=== PATIENT | female | born 2000 | race Caucasian/White ===

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

== ENCOUNTER 2022-02-27 12:09 | Outpatient (CLI) | payer BC ==
[2022-02-27 12:50] VITALS: BP 103/57; PULSE 85; RESP 16; TEMP 97
--- NOTE | 2022-05-10 13:44 | P.MSEPDOC ---
Presenting Problems - Arrival Data Date of Arrival on Unit: 02/27/22 Time of Arrival on Unit: 12:09 Mode of Transport: Ambulatory - Complaint OB-Reason for Admission/Chief Complaint: Rule Out PROM Medical History - Information : 1 Para: 0 Term: 0 : 0 Abortions: Spontaneous or Elective: 0 Number of Living Children: 0 - Gestational Age Gestational Age by MOE (wks/days): 26 Weeks and 6 Days Review of Systems - Review of Systems Constitutional: No problems Breast: No problems ENT: No problems Cardiovascular: No problems Respiratory: No problems Gastrointestinal: No problems Genitourinary: No problems Musculoskeletal: No problems Neurological: No problems Skin: No problems Vital Signs - Temperature Temperature: 97.0 F Temperature Source: Temporal Artery Scan - Pulse Right Sitting Pulse Rate: 85 Pulse Assessment Method: Automatic Cuff - Respirations Respiratory Rate: 16 Oxygen Delivery Method: Room Air O2 Sat by Pulse Oximetry: 98 - Blood Pressure Right Arm Blood Pressure: 103/57 Blood Pressure Mean: 72 Blood Pressure Source: Automatic Cuff Medical Screen Scoring - Assessment - Baby A Baseline FHR: 125 Heart Rate - NICHD Category: Category I (Normal) Physician Notification - Physician Notified Physician Notified Date: 02/27/22 Physician Notified Time: 12:37 Physician: Lauren Epstein New Order Received: Yes (d/c home) Maternal Triage Index - Urgent/Priority 2 Urgent Priority 2: Yes Provider Notified: Lauren Epstein Provider Notified Time: 12:37 Criteria Met for Priority 2: negative amnisure, no leaking fluid noted Disposition - Disposition OB Disposition: Discharge to home Discharge Date: 02/27/22 Discharge Time: 12:42 I agree with the RN Medical Screening Exam: Yes Case reviewed; plan agreed upon as documented in EMR&OBIX.: Yes Diagnosis: FALSE LABOR BEFORE 37 COMPLETED WEEKS OF GEST, THIRD TRI
== END 2022-02-27 12:42 | disposition home or self-care (01) ==
LOC: FBPOP 12:09
PROVIDERS: ATTEND Obstetrics & Gynecology Obstetrics
DX: O47.02 False labor before 37 completed weeks of gestation, second trimester (principal); Z3A.26 26 weeks gestation of pregnancy
CPT/HCPCS: 84112; 99213

== ENCOUNTER 2022-05-09 14:23 | Outpatient (CLI) | payer BC, OTHER ==
[2022-05-09 15:24] VITALS: BP 109/57; PULSE 87; RESP 16; TEMP 97.5
--- NOTE | 2022-05-10 14:40 | P.MSEPDOC ---
Presenting Problems - Arrival Data Date of Arrival on Unit: 05/09/22 Time of Arrival on Unit: 14:31 Mode of Transport: Ambulatory - Complaint OB-Reason for Admission/Chief Complaint: Possible Onset of Labor Comment: Contractions since yesterday- lower back and hip pain. Medical History - Information : 1 Para: 0 Term: 0 : 0 Abortions: Spontaneous or Elective: 0 Number of Living Children: 0 - Gestational Age Gestational Age by MOE (wks/days): 37 Weeks and 0 Days Review of Systems - Review of Systems Constitutional: No problems Breast: No problems ENT: No problems Cardiovascular: No problems Respiratory: No problems Gastrointestinal: No problems Genitourinary: No problems Musculoskeletal: No problems Neurological: No problems Skin: No problems Vital Signs - Temperature Temperature: 97.5 F Temperature Source: Oral - Pulse Pulse Oximetery Pulse Rate: 87 Pulse Assessment Method: Automatic Cuff - Respirations Respiratory Rate: 16 Oxygen Delivery Method: Room Air O2 Sat by Pulse Oximetry: 100 - Blood Pressure Left Arm Sitting Blood Pressure: 109/57 Blood Pressure Mean: 74 Blood Pressure Source: Automatic Cuff Medical Screen Scoring - Cervical Exam Dilation (cm): 1 Effacement (%): 50 Station: -2 Membranes: Intact - Uterine Contractions Frequency From (mins): 20 Frequency To (mins): 20 Duration From (seconds): 60 Duration To (seconds): 80 Intensity: Moderate Resting: Soft to palpation - Assessment - Baby A Baseline FHR: 120 Heart Rate - NICHD Category: Category I (Normal) NST: Reactive Physician Notification - Physician Notified Physician Notified Date: 05/09/22 Physician Notified Time: 15:10 Physician: Lauren Epstein New Order Received: Yes Maternal Triage Index - Maternal Triage Index Presenting for scheduled procedure w/no complaint: No - Stat/Priority 1 Stat Priority 1: No - Urgent/Priority 2 Urgent Priority 2: No - Prompt/Priority 3 Prompt Priority 3: No - Non-Urgent/Priority 4 Non-Urgent Priority 4: Yes Criteria Met for Priority 4: 37 weeks, contractions Q 20 minutes, denies ROM, denies vag bleeding. Contraction causing back pain and hip pressure. Disposition - Disposition OB Disposition: Discharge to home, Written follow up instructions reviewed Discharge Date: 05/09/22 Discharge Time: 15:15 I agree with the RN Medical Screening Exam: Yes Case reviewed; plan agreed upon as documented in EMR&OBIX.: Yes Diagnosis: FALSE LABOR AT OR AFTER 37 COMPLETED WEEKS OF GESTATION
== END 2022-05-09 15:15 | disposition home or self-care (01) ==
LOC: FBPOP 14:23
PROVIDERS: ATTEND Obstetrics & Gynecology Obstetrics
DX: O47.1 False labor at or after 37 completed weeks of gestation (principal); Z3A.37 37 weeks gestation of pregnancy
CPT/HCPCS: 59025; 99213

== ENCOUNTER 2022-05-23 05:58 | Inpatient (IN) | payer BC, OTHER ==
[2022-05-23] MEDS: LACTATED RINGERS 1,000 ML IV SCH ×3 (06:10→12:53)
[2022-05-23] MEDS ORDERED: TERBUTALINE 1 MG/ML VIAL SQ PRN (06:10)
[2022-05-23] MEDS ORDERED: LIDOCAINE 0.5% (PF) 5 MG/ML (50 ML SDV) SQ PRN (06:10)
[2022-05-23] MEDS ORDERED: OXYTOCIN 30 UNITS/500 ML NS 30 UNIT in SALINE 1 500ML.BAG IV SCH ×2 (06:15→14:00)
[2022-05-23 06:26] LABS: Basophils # (A) 0.1 k/uL (0-0.2); Basophils % (A) 1 %; Eosinophils # (A) 0.1 k/uL (0-0.7); Eosinophils % (A) 2 %; HCT 34.6 % (34.0-46.0); Lymphocytes % (A) 22 %; MCH 30.1 pg (25.0-35.0); MCHC 34.8 g/dL (31.0-37.0); MCV 86.3 fL (80.0-100.0); Mean Platelet Volume 10.2; Monocytes # (A) 0.5 k/uL (0-1.0); Monocytes % (A) 6 %; Neutrophils # (A) 6.4 k/uL (1.3-7.7); Neutrophils % (A) 69 %; Platelet Count 171 k/uL (150-450); RBC 4.01 m/uL (3.80-5.40); RDW 12.5 % (11.5-15.5); WBC 9.3 k/uL (4.0-11.0)
--- NOTE | 2022-05-23 08:46 | P.HPOB ---
History of Present Illness H&P Date: 05/23/22 Chief Complaint: IUP at 39 and 0/7 weeks this is a 21-year-old 1 para 0 at 39 0/7 weeks that presents to labor and delivery for elective induction of labor. Patient has been receiving routine care with myself which has been essentially uncomplicated. Patient notes good movement states she's noted an occasional contraction denies vaginal bleeding or loss of fluid. On bloodwork this patient is a blood type of A+, rubella status immune, B surface antigen is negative, HIV negative, RPR is nonreactive, group beta strep cultures were negative. Review of Systems Constitutional: Denies chills, Denies fatigue, Denies fever Ears, nose, mouth and throat: Denies headache Cardiovascular: Denies leg edema Respiratory: Denies dyspnea Gastrointestinal: Denies constipation, Denies diarrhea, Denies nausea, Denies vomiting Genitourinary: Reports Past Medical History Past Medical History: No Reported History History of Any Multi-Drug Resistant Organisms: None Reported Past Surgical History: No Surgical Hx Reported Past Anesthesia/Blood Transfusion Reactions: No Reported Reaction Past Psychological History: No Psychological Hx Reported Smoking Status: Never smoker Past Alcohol Use History: None Reported Past Drug Use History: None Reported - Past Family History Mother Family Medical History: No Reported History Medications and Allergies Home Medications Medication Instructions Recorded Confirmed Type Vit No.179/Iron/Folic 1 tab PO DAILY 02/27/22 05/23/22 History [ Tablet] Allergies Allergy/AdvReac Type Severity Reaction Status Date / Time No Known Allergies Allergy Verified 05/23/22 06:02 Exam Osteopathic Statement: *. No significant issues noted on an osteopathic structural exam other than those noted in the History and Physical/Consult. 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 heart tones are noted to be category 1 and she is sunday every 3 minutes. Results Result Diagrams: 05/23/22 06:15 Assessment and Plan (1) Term Current Visit: Yes Status: Acute Code(s): Z34.90 - ENCNTR FOR SUPRVSN OF NORMAL , UNSP, UNSP TRIMESTER SNOMED Code(s): 71120138 Plan: 21-year-old 1 para 0 at 39-0/7 weeks that presents for elective induction of labor. Patient is admitted to labor and delivery and Pitocin induction of labor is begun per hospital protocol. Options for analgesia are discussed including Stadol, nitrous and epidural. Patient will consider. Continue current plan.
[2022-05-23] MEDS ORDERED: SODIUM CHLORIDE 0.9% 100 ML BAG ONE (10:22)
[2022-05-23] MEDS ORDERED: ROPIVACAINE 5 MG/ML 20 ML AMPULE ONE (10:22)
[2022-05-23] MEDS ORDERED: fentaNYL (PF) 50 MCG/ML 5 ML AMP ONE (10:22)
[2022-05-23] MEDS ORDERED: diphenhydrAMINE 50 MG/ML 1 ML VIAL IVP PRN ×2 (13:51)
[2022-05-23] MEDS ORDERED: diphenhydrAMINE 25 MG CAP PO PRN (13:51)
[2022-05-23] MEDS ORDERED: HYDROCORTISONE 2.5% RECTAL CREAM 30 GM TUBE RECTAL PRN (13:51)
[2022-05-23] MEDS ORDERED: LANOLIN CREAM 5 GM TUBE TOPICAL PRN (13:51)
[2022-05-23] MEDS ORDERED: SIMETHICONE 80 MG CHEWABLE PO PRN (13:51)
[2022-05-23] MEDS ORDERED: ZOLPIDEM 5 MG TAB PO PRN (13:51)
[2022-05-23] MEDS ORDERED: BENZOCAINE/MENTHOL SPRAY 1 GM/SPRAY AEROSOL TOPICAL PRN (13:51)
[2022-05-23] MEDS ORDERED: diphenhydrAMINE 50 MG CAP PO PRN (13:51)
[2022-05-23] MEDS: IBUPROFEN 600 MG TAB PO SCH ×2 (15:18→19:40)
[2022-05-23 16:14] VITALS: RESP 16
[2022-05-23] MEDS: SENNOSIDES-DOCUSATE SODIUM 1 EACH TAB PO SCH (19:40)
[2022-05-24] MEDS: ACETAMINOPHEN TAB 325 MG TAB PO PRN ×2 (00:41→20:00)
[2022-05-24] MEDS: IBUPROFEN 600 MG TAB PO SCH ×3 (04:38→15:45)
[2022-05-24] MEDS: SENNOSIDES-DOCUSATE SODIUM 1 EACH TAB PO SCH ×2 (08:14→19:59)
--- NOTE | 2022-05-24 08:44 | P.PNOBGVD ---
Subjective - Subjective Principal diagnosis: day #1, status post normal spontaneous vaginal delivery Interval history: patient is doing well . She is ambulating and voiding without difficulty. She is tolerating a regular diet without nausea or vomiting. States her pain is well-controlled. She notes her is in feeding grade, she has elected to bottle feed. Patient reports: Reports appetite normal, Reports voiding normally, Reports pain well controlled, Reports ambulating normally : doing well, bottle feeding Objective - Latest Vital Signs Latest vital signs: Vital Signs Temp Pulse Resp BP Pulse Ox 05/24/22 08:00 97.5 F L 79 16 100/65 05/24/22 04:00 98.2 F 70 16 101/60 99 05/24/22 00:00 98.1 F 69 16 98/60 97 05/23/22 20:00 97.6 F 103 H 16 107/67 97 05/23/22 17:34 80 16 99/60 05/23/22 15:35 98.2 F 95 16 101/55 05/23/22 15:15 98.0 F 76 18 104/58 05/23/22 14:45 75 110/58 05/23/22 14:30 98.6 F 75 18 107/73 05/23/22 14:15 74 101/55 05/23/22 14:00 97.0 F L 90 18 116/63 05/23/22 13:45 97.9 F 82 18 112/57 Intake and Output 05/23/22 05/24/22 05/24/22 22:59 06:59 14:59 Other: # Voids 1 - Exam Extremities: Present: normal, edema Abdomen: Present: normal appearance, soft Uterus: Present: normal, firm Assessment and Plan (1) Term Current Visit: Yes Status: Acute Code(s): Z34.90 - ENCNTR FOR SUPRVSN OF NORMAL , UNSP, UNSP TRIMESTER SNOMED Code(s): 16756028 (2) (normal spontaneous vaginal delivery) Current Visit: Yes Status: Acute Code(s): O80 - ENCOUNTER FOR FULL-TERM UNCOMPLICATED DELIVERY SNOMED Code(s): 16365760 Plan: 21-year-old 1 now para 1 status post normal spontaneous vaginal delivery. Patient is doing well . Will plan to work on feeding today, patient does desire circumcision for her son. We will await circumcision until feeding has improved. And a discharge home tomorrow.
--- NOTE | 2022-05-24 08:45 | P.PROBDLV ---
Vaginal Delivery Note - . Vaginal Delivery Note: findings: viable male infant delivered 21-year-old 1 para 0 that presented to labor and delivery this morning at 39 0/7 weeks for elective induction of labor. Patient was admitted to labor and delivery and Pitocin induction of labor was begun. Patient underwent amniotomy clear fluid was obtained. Patient progressed through labor eventually noted cervical change and requested epidural. Epidural was placed without difficulty by the anesthesia department. Patient made good progress were complete and with excellent maternal effort brought the head down to presentation. With additional pushes the anterior/posterior shoulder was delivered without difficulty. The body followed and was placed on the maternal abdomen. Spontaneous cry was noted at . After two-minute delayed the umbilical cord was doubly clamped and cut and the placenta was delivered spontaneously intact with three-vessel cord being noted. On inspection the patient's vaginal vault a right labial laceration was appreciated and repaired in the usual fashion with 4-0 chromic. A left hymenal laceration was appreciated and repaired with a [id number] suture of 4-0 chromic. uterus is noted be firm and below the umbilicus, the bladder was drained for approximately 200 mL of clear yellow urine. On inspection of the laceration sites hemostasis was noted. Estimated blood loss 100 mL. Patient and infant tolerated delivery well and are resting comfortably.
[2022-05-25] MEDS: IBUPROFEN 600 MG TAB PO SCH ×2 (05:52→07:38)
[2022-05-25] MEDS: SENNOSIDES-DOCUSATE SODIUM 1 EACH TAB PO SCH (07:39)
[2022-05-25 08:16] VITALS: BP 110/75; PULSE 79; TEMP 97.7
--- NOTE | 2022-05-25 08:45 | P.DS ---
Providers Date of admission: 05/23/22 05:58 Expected date of discharge: 05/25/22 Attending physician: Lauren Epstein Primary care physician: Stated None - Discharge Diagnosis(es) (1) Term Current Visit: Yes Status: Acute (2) (normal spontaneous vaginal delivery) Current Visit: Yes Status: Acute Hospital Course: this is a 21-year-old 1 now para 1 that presented to labor and delivery on 05/23 for scheduled elective induction of labor. Patient was admitted and Pi tocin induction of labor was begun. Patient progressed quickly through labor eventually requesting epidural. Epidural was placed without difficulty by the anesthesia department. Patient progressed quickly to complete began pushing and had a normal spontaneous vaginal delivery of a viable male infant at 1328, weight of 7 lbs. 3 oz., Apgars of 9 and 9 at one and 5 minutes respectively. patient did sustain a right labial laceration which was repaired in the usual fashion with 4-0 chromic. Patient has done well , she is ambulating and voiding without difficulty. She is tolerating a regular diet without nausea or vomiting. She is bottle feeding. She states she feels well and is ready for discharge. Patient Condition at Discharge: Good Plan - Discharge Summary New Discharge Prescriptions: No Action Vit No.179/Iron/Folic [ Tablet] 1 tab PO DAILY Discharge Medication List Vit No.179/Iron/Folic [ Tablet] 1 tab PO DAILY 02/27/22 [History] Follow up Appointment(s)/Referral(s): Lauren Epstein DO [Doctor of Osteopathic Medicine] - 1 Week Patient Instructions/Handouts: Vaginal Delivery (DC), Vaginal Delivery (GEN) Activity/Diet/Wound Care/Special Instructions: patient is counseled on discharge instructions. [id number] ibuprofen as needed for pain. Leading is discussed with patient, questions are answered. Patient is asked to follow up in 4 weeks for routine check. No intercourse or tub baths until 6 weeks . She is asked call the office should she have any concerns prior to her appointment. Discharge Disposition: HOME SELF-CARE
== END 2022-05-25 10:45 | disposition home or self-care (01) | DRG 807 ==
LOC: 4FBP 05:58
PROVIDERS: ADMIT Obstetrics & Gynecology Obstetrics; ATTEND Obstetrics & Gynecology Obstetrics
PROC: 10E0XZZ Delivery of Products of Conception, External Approach (ICD-10-PCS; principal; 2022-05-23)
PROC: 0HQ9XZZ Repair Perineum Skin, External Approach (ICD-10-PCS; 2022-05-23)
PROC: 0UQKXZZ Repair Hymen, External Approach (ICD-10-PCS; 2022-05-23)
PROC: 10907ZC Drainage of Amniotic Fluid, Therapeutic from Products of Conception, Via Natural or Artificial Opening (ICD-10-PCS; 2022-05-23)
PROC: 3E033VJ Introduction of Other Hormone into Peripheral Vein, Percutaneous Approach (ICD-10-PCS; 2022-05-23)
PROC: 4A0HXCZ Measurement of Products of Conception, Cardiac Rate, External Approach (ICD-10-PCS; 2022-05-23)
DX: O70.0 First degree perineal laceration during delivery (principal); Z37.0 Single live birth; Z3A.39 39 weeks gestation of pregnancy
CPT/HCPCS: 85025; 86850; 86900; 86901

== ENCOUNTER 2022-05-28 19:37 | Emergency (ER) | payer BC, OTHER ==
[2022-05-28 20:04] VITALS: RESP 16; TEMP 98.2
[2022-05-28] MEDS ORDERED: SODIUM CHLORIDE 0.9% 1,000 ML IV STA (20:32)
[2022-05-28] MEDS ORDERED: ONDANSETRON 4 MG/2 ML VIAL IVP STA (20:32)
--- NOTE | 2022-05-28 21:01 | XR ---
EXAMINATION TYPE: XR chest 2V DATE OF EXAM: 05/28/2022 COMPARISON: NONE HISTORY: Chest pain TECHNIQUE: 2 views FINDINGS: Heart and mediastinum are normal. Lungs are clear. Diaphragm is normal. Bony thorax is inta ct. IMPRESSION: Normal chest.
[2022-05-28 21:16] LABS: Basophils # (A) 0.1 k/uL (0-0.2); Basophils % (A) 1 %; Eosinophils # (A) 0.2 k/uL (0-0.7); Eosinophils % (A) 2 %; HCT 34.1 % (34.0-46.0); HGB 11.5 gm/dL (11.4-16.0); Lymphocytes # (A) 1.8 k/uL (1.0-4.8); Lymphocytes % (A) 22 %; MCH 29.8 pg (25.0-35.0); MCHC 33.9 g/dL (31.0-37.0); Mean Platelet Volume 9.3; Monocytes # (A) 0.4 k/uL (0-1.0); Monocytes % (A) 5 %; Neutrophils # (A) 5.6 k/uL (1.3-7.7); Neutrophils % (A) 67 %; Platelet Count 255 k/uL (150-450); RBC 3.87 m/uL (3.80-5.40); RDW 13.1 % (11.5-15.5); WBC 8.4 k/uL (4.0-11.0)
[2022-05-28 21:30] LABS: ALT 26 U/L (4-34); AST 27 U/L (14-36); African American GFR (CKD) >90 (>60 ml/min/1.73 sqM); Albumin 3.9 g/dL (3.5-5.0); Alkaline Phosphatase 176 U/L (38-126); Anion Gap 8 mmol/L; Blood Urea Nitrogen 13 mg/dL (7-17); Calcium 8.6 mg/dL (8.4-10.2); Carbon Dioxide 20 mmol/L (22-30); Chloride 113 mmol/L (98-107); Glucose 82 mg/dL (74-99); INR 0.9 (<1.2); Lipase 36 U/L (23-300); Magnesium 2.3 mg/dL (1.6-2.3); Non-African American GFR(CKD) >90 (>60 ml/min/1.73 sqM); Partial Thromboplastin Time 23.2 sec (22.0-30.0); Potassium 3.6 mmol/L (3.5-5.1); Prothrombin Time 9.5 sec (9.0-12.0); Sodium 141 mmol/L (137-145); Total Bilirubin 0.4 mg/dL (0.2-1.3); Total Protein 6.8 g/dL (6.3-8.2)
[2022-05-28 21:50] LABS: Appearance,Urine Cloudy (Clear); Bacteria,Urine Rare /hpf; Bilirubin,Urine Negative (Negative); Blood,Urine Large (Negative); Color,Urine Yellow; Glucose,Urine (UA) Negative (Negative); Ketones,Urine 2+ (Negative); Leukocyte Esterase,Urine Large (Negative); Mucus,Urine Many /hpf; Nitrite,Urine Negative (Negative); Protein,Urine 1+ (Negative); RBC,Urine 26 /hpf (0-5); Specific Gravity,Urine 1.037 (1.001-1.035); Squamous Epithelial Cell,Urine 5 /hpf (0-4); WBC,Urine 130 /hpf (0-5)
--- NOTE | 2022-05-28 22:59 | CT ---
EXAMINATION TYPE: CT angio chest DATE OF EXAM: 05/28/2022 COMPARISON: None HISTORY: chest pain CT DLP: 211.6 mGycm Automated exposure control for dose reduction was used. CONTRAST: Performed with IV Contrast, patient injected with 100 mL of Isovue 370. Images obtained from the thoracic inlet to the diaphragm with the IV contrast. Three-D postprocessed images. The lungs are clear of infiltrate. No pleural effusion or pneumothorax. Heart size is normal. No perico cardial effusion. There is no mediastinal adenopathy. There are no hilar masses. There are bilateral breast implants. Thoracic aorta is intact. No aneurysm or dissection. There is normal contrast opacification of the pulmonary arteries. No filling defect. The upper abdomi nal soft tissues are intact. The thoracic spine is intact. No compression fracture. Sternum is intact . IMPRESSION: No evidence of pulmonary embolism. Negative exam.
[2022-05-28] MEDS ORDERED: ACETAMINOPHEN TAB 500 MG TAB PO STA (23:27)
--- NOTE | 2022-05-28 23:30 | ED ---
Chest Pain HPI - General Chief Complaint: Chest Pain Stated Complaint: Chest Pain,ANN,Cough Time Seen by Provider: 05/28/22 20:16 Source: patient Mode of arrival: ambulatory Limitations: no limitations - History of Present Illness Initial Comments: Patient is a 21-year-old female who presents to the emergency department with a chief complaint of chest pressure. Patient states pressure started shortly after giving 6 days ago. Patient had a vaginal delivery. Patient did endorse a vaginal tear otherwise no complication. Patient feels that pressure may be due to pushing. She also reports dry cough, shortness of breath and mild nausea. She denies leg pain and swelling. She denies history of DVT and PE. Denies other upper respiratory symptoms, fever, abdominal pain, vomiting, burning with urination. Patient currently breast-feeding. Patient denies history of cardiac disease. Denies family history of cardiac disease. Denies past and present use of tobacco. - Related Data Home Medications Medication Instructions Recorded Confirmed Vit No.179/Iron/Folic 1 tab PO DAILY 02/27/22 05/28/22 [ Tablet] Allergies Allergy/AdvReac Type Severity Reaction Status Date / Time No Known Allergies Allergy Verified 05/28/22 20:04 Review of Systems ROS Statement: Those systems with pertinent positive or pertinent negative responses have been documented in the HPI. ROS Other: All systems not noted in ROS Statement are negative. EKG Findings - EKG Comments: EKG Findings:: EKG taken at 20:26, interpreted by me. Sinus rhythm, T-wave inversion in lead 3, no ST depression or elevation. Ventricular rate 67. [place] interval and 117. QRS duration 83. QTc 392. Past Medical History Past Medical History: No Reported History History of Any Multi-Drug Resistant Organisms: None Reported Past Surgical History: No Surgical Hx Reported Past Anesthesia/Blood Transfusion Reactions: No Reported Reaction Past Psychological History: No Psychological Hx Reported Smoking Status: Never smoker Past Alcohol Use History: None Reported Past Drug Use History: None Reported - Past Family History Mother Family Medical History: No Reported History General Exam Limitations: no limitations General appearance: alert, in no apparent distress Head exam: Present: atraumatic, normocephalic, normal inspection Eye exam: Present: normal appearance, PERRL, EOMI. Absent: scleral icterus, conjunctival injection, periorbital swelling Neck exam: Present: normal inspection, full ROM Respiratory exam: Present: normal lung sounds bilaterally, chest wall tenderness. Absent: respiratory distress, wheezes, rales, rhonchi, stridor, decreased breath sounds Cardiovascular Exam: Present: regular rate, normal rhythm, normal heart sounds. Absent: systolic murmur, diastolic murmur, rubs, gallop, clicks GI/Abdominal exam: Present: soft, normal bowel sounds. Absent: distended, tenderness, guarding, rebound, rigid Extremities exam: Present: normal inspection, full ROM, normal capillary refill. Absent: pedal edema, joint swelling Neurological exam: Present: alert, oriented X3, CN II-XII intact Psychiatric exam: Present: normal affect, normal mood Skin exam: Present: warm, dry, intact, normal color. Absent: rash Course Vital Signs 05/28/22 05/28/22 20:02 23:36 Temperature 98.2 F Pulse Rate 69 73 Respiratory 16 16 Rate Blood Pressure 116/79 110/73 O2 Sat by Pulse 98 98 Oximetry Chest Pain MDM - MDM This is a 21-year-old female 6 days presenting with chest pressure and shortness of breath. Patient well-appearing and in no apparent distress. Vitals within normal limits. Patient does have chest wall tenderness. EKG obtained and interpreted by me which shows sinus rhythm with T-wave inversion in lead 3, no previous for comparison. No ST segment abnormality. Laboratory studies obtained. Troponin is within normal limits. COVID-19 and influenza are not detected. Chest x-ray obtained and interpreted by me which is does not detect pneumonia or other acute process. After elevated d-dimer at 2.08, chest CTA was obtained and interpreted by me which shows no evidence of pulmonary embolism or other acute process. Results discussed with patient. Patient is young female presenting with atypical chest pain. She does not have risk factors of cardiac disease. Suspect patient has musculoskeletal injury from delivery. This could be a combination with upper respiratory infection. Patient will be discharged with strict return parameters. Dr. Santos is my attending. Disposition Clinical Impression: Chest pressure, Musculoskeletal pain, Cough, Shortness of breath Disposition: HOME SELF-CARE Condition: Good Instructions (If sedation given, give patient instructions): Chest Pain (ED), Musculoskeletal Pain (ED) Additional Instructions: Take Tylenol for pain. Applying warm or cold packs may help symptoms. It is important to establish care with a primary care provider. Return to the emergency department if you experience new, concerning, or worsening symptoms. Is patient prescribed a controlled substance at d/c from ED?: No Referrals: None,Stated [Primary Care Provider] - 1-2 days Juan C Parmar DO [STAFF PHYSICIAN] - 1-2 days Teto Singh DO [STAFF PHYSICIAN] - 1-2 days Jorje Diaz MD [STAFF PHYSICIAN] - 1-2 days
[2022-05-28 23:38] VITALS: BP 110/73; PULSE 73
== END 2022-05-28 23:38 | disposition home or self-care (01) ==
LOC: EC 19:37
DX: R07.89 Other chest pain (principal); R06.02 Shortness of breath; M79.10 Myalgia, unspecified site; Z20.822 Contact with and (suspected) exposure to COVID-19
CPT/HCPCS: 36415; 93005; 85379; 80053; 83690; 83735; 84484; 85025; 85610; 85730; 81001; 87086; 87502; 87635; 71046; 71275; 99285; Q9967

== ENCOUNTER 2023-06-04 12:44 | Outpatient (CLI) | payer BC, OTHER ==
[2023-06-04 13:40] LABS: Appearance,Urine Cloudy (Clear); Bilirubin,Urine Negative (Negative); Blood,Urine Negative (Negative); Color,Urine Light Yellow; Glucose,Urine (UA) Negative (Negative); Ketones,Urine Negative (Negative); PH, Urine 7.5 (5.0-8.0); Protein,Urine Negative (Negative)
[2023-06-04 13:41] LABS: Leukocyte Esterase,Urine Large (Negative); Nitrite,Urine Negative (Negative); Urobilinogen,Urine <2.0 mg/dL (<2.0)
[2023-06-04 13:44] LABS: Bacteria,Urine Moderate /hpf; RBC,Urine 7 /hpf (0-5); Squamous Epithelial Cell,Urine 12 /hpf (0-4); WBC,Urine 47 /hpf (0-5)
[2023-06-04 14:31] VITALS: BP 119/75; PULSE 129; RESP 17; TEMP 97.9
--- NOTE | 2023-06-16 11:12 | P.MSEPDOC ---
Presenting Problems - Arrival Data Date of Arrival on Unit: 06/04/23 Time of Arrival on Unit: 12:44 Mode of Transport: Ambulatory - Complaint OB-Reason for Admission/Chief Complaint: Possible Onset of Labor, Pain Comment: pt presents to triage with contstant pelvic pressure, dizziness, and nausea Medical History - Information : 2 Para: 1 Term: 1 : 0 Abortions: Spontaneous or Elective: 0 Number of Living Children: 1 - Gestational Age Gestational Age by MOE (wks/days): 37 Weeks and 3 Days Review of Systems - Review of Systems Constitutional: No problems Breast: No problems ENT: No problems Cardiovascular: No problems Respiratory: No problems Gastrointestinal: No problems Genitourinary: No problems Musculoskeletal: No problems Neurological: No problems Skin: No problems Vital Signs - Temperature Temperature: 97.9 F Temperature Source: Temporal Artery Scan - Pulse Right Brachial Pulse Rate: 129 Pulse Assessment Method: Automatic Cuff - Respirations Respiratory Rate: 17 Oxygen Delivery Method: Room Air O2 Sat by Pulse Oximetry: 98 - Blood Pressure Right Arm Blood Pressure: 119/75 Blood Pressure Mean: 89 Blood Pressure Source: Automatic Cuff Medical Screen Scoring - Cervical Exam Dilation (cm): 3 Effacement (%): 50 Station: -2 Membranes: Intact - Assessment - Baby A Baseline FHR: 140 Heart Rate - NICHD Category: Category I (Normal) NST: Reactive Physician Notification - Physician Notified Physician Notified Date: 06/04/23 Physician Notified Time: 13:21 Physician: Juanito Guerrier Order Received: Yes - Notification Comment Comment: ua sent, urine culture ordered, pulse decreased back down to 89-90's, cervical exam with no change, reactive nst, pt discharged home, has appt in office on mon with Dr. Epstein Maternal Triage Index - Maternal Triage Index Presenting for scheduled procedure w/no complaint: No - Stat/Priority 1 Stat Priority 1: No - Urgent/Priority 2 Urgent Priority 2: No - Prompt/Priority 3 Prompt Priority 3: Yes Criteria Met for Priority 3: pt presents to triage with contstant pelvic pressure, dizziness, and nausea Disposition - Disposition OB Disposition: Triage, Discharge to home, Written follow up instructions reviewed Discharge Date: 06/04/23 Discharge Time: 14:15 I agree with the RN Medical Screening Exam: Yes Physician's MSE Comment: I have neither seen nor examined the patient. Case reviewed; plan agreed upon as documented in EMR&OBIX.: Yes Diagnosis: RELATED CONDITIONS, UNSPECIFIED, THIRD TRIMESTER
== END 2023-06-04 14:15 | disposition home or self-care (01) ==
LOC: FBPOP 12:44
PROVIDERS: ATTEND Obstetrics & Gynecology
DX: O47.03 False labor before 37 completed weeks of gestation, third trimester (principal); Z3A.37 37 weeks gestation of pregnancy
CPT/HCPCS: 59025; 81001; 87086; 99213

== ENCOUNTER 2023-06-12 03:52 | Inpatient (IN) | payer BC, OTHER ==
[2023-06-12] MEDS: LACTATED RINGERS 1,000 ML IV SCH ×2 (04:10→05:27)
[2023-06-12] MEDS ORDERED: LIDOCAINE 0.5% (PF) 5 MG/ML (50 ML SDV) SQ PRN (04:13)
[2023-06-12] MEDS ORDERED: OXYTOCIN 10 UNIT/ML 1 ML VIAL IM PRN (04:13)
[2023-06-12] MEDS ORDERED: miSOPROStoL 200 MCG TAB PO PRN (04:13)
[2023-06-12] MEDS ORDERED: METHYLERGONOVINE 0.2 MG/ML 1 ML AMP IM PRN (04:13)
[2023-06-12] MEDS ORDERED: CARBOPROST TROMETHAMINE 250 MCG/ML 1 ML AMP IM PRN (04:13)
[2023-06-12] MEDS ORDERED: TRANEXAMIC 1,000 MG/100ML-NACL 1,000 MG in EMPTY BAG 1 BAG IV PRN (04:13)
[2023-06-12] MEDS ORDERED: TERBUTALINE 1 MG/ML VIAL SQ PRN (04:13)
[2023-06-12] MEDS ORDERED: OXYTOCIN 30 UNITS/500 ML NS 30 UNIT in SALINE 1 500ML.BAG IV SCH (04:15)
[2023-06-12 04:26] LABS: Basophils # (A) 0.1 k/uL (0-0.2); Basophils % (A) 1 %; Eosinophils # (A) 0.1 k/uL (0-0.7); Eosinophils % (A) 1 %; HCT 35.1 % (34.0-46.0); Lymphocytes # (A) 2.1 k/uL (1.0-4.8); Lymphocytes % (A) 23 %; MCH 28.3 pg (25.0-35.0); MCHC 34.2 g/dL (31.0-37.0); MCV 82.6 fL (80.0-100.0); Mean Platelet Volume 10.6; Monocytes # (A) 0.5 k/uL (0-1.0); Monocytes % (A) 5 %; Neutrophils # (A) 6.1 k/uL (1.3-7.7); Neutrophils % (A) 67 %; Platelet Count 157 k/uL (150-450); RBC 4.25 m/uL (3.80-5.40); RDW 13.2 % (11.5-15.5); WBC 9.1 k/uL (4.0-11.0)
[2023-06-12] MEDS ORDERED: fentaNYL (PF) 50 MCG/ML 5 ML AMP ONE (04:34)
[2023-06-12] MEDS ORDERED: ROPIVACAINE 5 MG/ML 30 ML VIAL ONE (04:34)
[2023-06-12] MEDS ORDERED: SODIUM CHLORIDE 0.9% 250 ML BAG ONE (04:34)
--- NOTE | 2023-06-12 08:36 | P.HPOB ---
History of Present Illness H&P Date: 06/12/23 Chief Complaint: IUP @ 38 4/7 weeks, active labor This is a 22 yo at 38 4/7 weeks that presents with complaints of contractions that began at 3 am. She denies LOF. She has been receiving routine care, patient did have a short inner conceptual period From her last delivery. care has been essentially uncomplicated. Review of Systems Constitutional: Denies chills, Denies fatigue, Denies fever Ears, nose, mouth and throat: Denies headache Cardiovascular: Denies leg edema Respiratory: Denies dyspnea Gastrointestinal: Denies constipation, Denies diarrhea, Denies nausea, Denies vomiting Genitourinary: Reports Past Medical History Past Medical History: No Reported History History of Any Multi-Drug Resistant Organisms: None Reported Past Surgical History: No Surgical Hx Reported Past Anesthesia/Blood Transfusion Reactions: No Reported Reaction Past Psychological History: No Psychological Hx Reported Smoking Status: Never smoker Past Alcohol Use History: None Reported Past Drug Use History: None Reported - Past Family History Mother Family Medical History: No Reported History Medications and Allergies Allergies Allergy/AdvReac Type Severity Reaction Status Date / Time No Known Allergies Allergy Verified 06/04/23 12:57 Exam Osteopathic Statement: *. No significant issues noted on an osteopathic stru ctural exam other than those noted in the History and Physical/Consult. Vital Signs Temp Pulse Resp BP Pulse Ox 06/12/23 04:04 96.9 F L 99 18 121/76 100 Intake and Output 06/11/23 06/12/23 06/12/23 22:59 06:59 14:59 Other: # Voids 1 Weight 58.06 kg Targeted physical exam is performed in this date in general this a well- nourished well-developed female in no acute distress, breathing is noted to be nonlabored, heart has a regular rate and rhythm, abdomen is gravid and appropriate for gestational age, on cervical exam she is 9/100/0 station. Patient is comfortable with epidural as she received over the night. Amniotomy was preformed and clear fluid is obtained Results Result Diagrams: 06/12/23 03:57 Assessment and Plan (1) Active labor Current Visit: Yes Status: Acute Code(s): MGQ8497 - SNOMED Code(s): 55257 6002 (2) Term Current Visit: No Status: Acute Code(s): Z34.90 - ENCNTR FOR SUPRVSN OF NORMAL , UNSP, UNSP TRIMESTER SNOMED Code(s): 41737962 Plan: 22 yo at 38 4/7 weeks that presents to labor in delivery in active labo r. She did receive an epidural through the night for pain management. Anticipate spontaneous vaginal delivery this morning.
[2023-06-12] MEDS ORDERED: BENZOCAINE/MENTHOL SPRAY 1 GM/SPRAY AEROSOL TOPICAL PRN (09:04)
[2023-06-12] MEDS ORDERED: diphenhydrAMINE 25 MG CAP PO PRN (09:04)
[2023-06-12] MEDS ORDERED: diphenhydrAMINE 50 MG/ML 1 ML VIAL IVP PRN ×2 (09:04)
[2023-06-12] MEDS ORDERED: ZOLPIDEM 5 MG TAB PO PRN (09:04)
[2023-06-12] MEDS ORDERED: HYDROCORTISONE 2.5% RECTAL CREAM 30 GM TUBE RECTAL PRN (09:04)
[2023-06-12] MEDS ORDERED: diphenhydrAMINE 50 MG CAP PO PRN (09:04)
[2023-06-12] MEDS ORDERED: ACETAMINOPHEN TAB 325 MG TAB PO PRN (09:04)
[2023-06-12] MEDS ORDERED: SIMETHICONE 80 MG CHEWABLE PO PRN (09:04)
[2023-06-12] MEDS ORDERED: LANOLIN CREAM 5 GM TUBE TOPICAL PRN (09:04)
--- NOTE | 2023-06-12 09:07 | P.PROBDLV ---
Vaginal Delivery Note - . Vaginal Delivery Note: Findings: Viable male infant delivered at 849, weight of 7 lbs. 12 oz., Apgars of 9 and 9 at one and 5 minutes respectively. 22-year-old at 38-4/7 weeks presented early this a.m. with complaints of regular painful contractions that began around 3 AM. Patient denied loss of fluid. Patient was admitted and quickly requested epidural placement. Epidural was placed without difficulty by the anesthesia department. Patient progressed to the evening and this morning was noted to be 9 cm amniotomy is performed and clear fluid was obtained. Patient quickly noticed increased rectal pressure. Patient was noted to be completely dilated and began pushing. With excellent maternal effort patient had a normal spontaneous vaginal delivery of a viable male at 849, weight of 7 lbs. 12 oz., Apgars of 9 and 9 at one and 5 minutes respectively. After two-minute delayed the umbilical cord was doubly clamped and cut. Patient did sustain a clitoral laceration which was repaired in the usual fashion with 4-0 chromic. Hemostasis was noted after closure. U terus is noted be firm and below the umbilicus. Bladder was drained with a red rubber catheter for approximately 100 mL of clear yellow urine. Patient and infant tolerated delivery well and are resting comfortably, all counts were noted to be correct 2 at the end of the delivery.
[2023-06-12] MEDS: IBUPROFEN 600 MG TAB PO SCH ×2 (13:19→15:37)
[2023-06-12] MEDS: SENNOSIDES-DOCUSATE SODIUM 1 EACH TAB PO SCH (20:34)
[2023-06-12 20:41] VITALS: RESP 16
[2023-06-13] MEDS: IBUPROFEN 600 MG TAB PO SCH ×2 (00:13→01:15)
[2023-06-13] MEDS: SENNOSIDES-DOCUSATE SODIUM 1 EACH TAB PO SCH (08:10)
--- NOTE | 2023-06-13 09:39 | P.DS ---
Providers Date of admission: 06/12/23 03:52 Expected date of discharge: 06/13/23 Attending physician: Lauren Epstein Primary care physician: Stated None - Discharge Diagnosis(es) (1) Active labor Current Visit: Yes Status: Acute (2) Term Current Visit: No Status: Acute (3) Obstetrical laceration, first degree Current Visit: Yes Status: Acute (4) (normal spontaneous vaginal delivery) Current Visit: No Status: Acute Hospital Course: 22-year-old 2 now para 2 that presented to labor and delivery at 38-4/7 weeks with complaints of regular painful contractions that began in the early a.m. Patient been receiving routine care which had been essentially uncomplicated. For full details of this patient please see the dictated history and physical. Patient was noted to be 6 cm upon admission. Patient was admitted and epidural was placed per patient request. Patient made but good progress towards complete. Amniotomy was performed and patient began pushing. With excellent maternal effort patient had a normal spontaneous vaginal delivery of a viable male infant at 849, weight of 7 lbs. 12 oz., Apgars of 9 and 9 at one and 5 minutes respectively. Patient did sustain a clitoral laceration was was repaired in the usual fashion with 4-0 chromic. Patient did well with closure and hemostasis was noted afterwards. Patient's course has been uneventful. On this day #1 she is ambulating and voiding without difficulty. She is tolerating a regular diet without nausea or vomiting. She states her pain is well-controlled. She would like discharge home at 24 hours if possible. Patient Condition at Discharge: Good Plan - Discharge Summary Follow up Appointment(s)/Referral(s): Lauren Epstein DO [Doctor of Osteopathic Medicine] - 6 Weeks Patient Instructions/Handouts: Vaginal Delivery (GEN), Vaginal Delivery (DC) Activity/Diet/Wound Care/Special Instructions: No tub baths or intercourse until 6 weeks . [id number] ibuprofen 600 mg or 3 tablets every 6 hours as needed for pain. Patient is to call the office and make a routine visit for 6 weeks. Should she have any concerns prior to this appointment she is urged to be seen sooner. Discharge Disposition: HOME SELF-CARE
[2023-06-13 12:25] VITALS: BP 103/66; PULSE 101; TEMP 98.1
== END 2023-06-13 14:55 | disposition home or self-care (01) | DRG 768 ==
LOC: 4FBP 03:52
PROVIDERS: ADMIT Obstetrics & Gynecology Obstetrics; ATTEND Obstetrics & Gynecology Obstetrics
PROC: 0UQJXZZ Repair Clitoris, External Approach (ICD-10-PCS; principal; 2023-06-12)
PROC: 10907ZC Drainage of Amniotic Fluid, Therapeutic from Products of Conception, Via Natural or Artificial Opening (ICD-10-PCS; principal; 2023-06-12)
PROC: 10E0XZZ Delivery of Products of Conception, External Approach (ICD-10-PCS; principal; 2023-06-12)
DX: O70.0 First degree perineal laceration during delivery (principal); Z28.310 Unvaccinated for COVID-19; Z3A.38 38 weeks gestation of pregnancy; Z37.0 Single live birth
CPT/HCPCS: 85025; 86850; 86900; 86901

== ENCOUNTER 2024-12-20 22:41 | Emergency (ER) | payer BC, OTHER ==
[2024-12-20 22:51] LABS: Glucose,Whole Blood 138 mg/dL (70-110)
--- NOTE | 2024-12-20 23:02 | ED ---
General Adult HPI - General Chief complaint: Dizziness Stated complaint: Near Syncope Time Seen by Provider: 12/20/24 22:55 Source: patient, EMS, RN notes reviewed, old records reviewed Mode of arrival: EMS Limitations: no limitations - History of Present Illness Initial comments: 24-year-old female presents emergency department complaining of a near syncopal episode at home. States she was sitting there when she began feeling extremely short of breath and felt like she might pass out. States she was feeling lightheaded and her heart began racing. With some chest tightness.States she feels a chest tightness and that her heart is racing. States this feels like a panic attack which she has had in the past but more severe. Does endorse being under more stress lately with less fluid intake. Denies any drug or alcohol use. Denies any fevers, chills, cough. Denies being . Denies any abdominal pain. Denies nausea or vomiting. Has no acute complaints at this time.Denies urinary complaints. Denies vaginal bleeding or discharge. Denies being . No recent long distance travel. No leg edema. - Related Data Previous Rx's Medication Instructions Recorded LORazepam [Ativan] 0.5 mg PO DAILY PRN 3 Days #3 tab 12/21/24 Allergies Allergy/AdvReac Type Severity Reaction Status Date / Time No Known Allergies Allergy Verified 12/20/24 22:49 Review of Systems ROS Statement: Those systems with pertinent positive or pertinent negative responses have been documented in the HPI. Review of Systems: CONST: Endorses anxiety EYES: Denies blurry vision ENT: Denies nasal congestion C/V: Denies Chest pain RESP: Denies shortness of breath GI: Denies abdominal pain : Denies dysuria SKIN: Denies rash. MSK: Denies joint pain. NEURO: Denies headache ROS Other: All systems not noted in ROS Statement are negative. Past Medical History Past Medical History: No Reported History History of Any Multi-Drug Resistant Organisms: None Reported Past Surgical History: No Surgical Hx Reported Past Anesthesia/Blood Transfusion Reactions: No Reported Reaction Past Psychological History: Anxiety Smoking Status: Never smoker Past Alcohol Use History: Occasional Past Drug Use History: Marijuana - Past Family History Mother Family Medical History: No Reported History General Exam - General Exam Comments Initial Comments: General: Appears very anxious. HEAD: Normal with no signs of head trauma. EYES: PERRLA, EOMI, conjunctiva normal, no discharge. ENT: Hearing grossly intact. Mildly dry mucous membranes. RESPIRATORY: Clear breath sounds bilaterally. No wheezes, rales, or rhonchi. C/V: Tachycardic with a regular rhythm. S1 and S2 auscultated, no edema, peripheral pulses 2+ and intact throughout ABD: Abd is soft, nontender, nondistended EXT: Normal range of motion, no obvious deformity SKIN: No rashes or lesions observed on exposed skin. NEURO: Alert and oriented x 4. Limitations: no limitations Course Vital Signs 12/20/24 12/20/24 12/20/24 22:45 23:20 23:48 Temperature 98.1 F Pulse Rate 129 H 114 H 96 Respiratory 20 16 16 Rate Blood Pressure 134/73 105/56 O2 Sat by Pulse 98 98 99 Oximetry 12/21/24 00:45 Temperature 98.3 F Pulse Rate 89 Respiratory 16 Rate Blood Pressure 110/60 O2 Sat by Pulse 100 Oximetry Medical Decision Making - Medical Decision Making Was pt. sent in by a medical professional or institution (, PA, STIFF LEG OPERATOR, urgent care, hospital, or detention...) When possible be specific @ -No Did you speak to anyone other than the patient for history (EMS, parent, family, police, friend...)? What history was obtained from this source @ -No Did you review nursing and triage notes (agree or disagree)? Why? @ -I reviewed and agree with nursing and triage notes Were old charts reviewed (outside hosp., previous admission, EMS record, old EKG, old radiological studies, urgent care reports/EKG's, detention records)? Report findings @ -Compared today's EKG with EKG from May 2022 with no significant acute change. Differential Diagnosis (chest pain, altered mental status, abdominal pain women, abdominal pain men, vaginal bleeding, weakness, fever, dyspnea, syncope, headache, dizziness, GI bleed, back pain, seizure, CVA, palpatations, mental health, musculoskeletal)? @ -Differential Syncope: Valvular disease, hypertrophic cardiomyopathy, pulmonary embolism, tamponade, tachycardia, bradycardia, NH, hypovolemia, hemorrhage, dissection, anemia, i ntracranial hemorrhage, seizure, hypoglycemia, carbon monoxide poisoning, this is not meant to be an all-inclusive list. EKG interpreted by me (3pts min.). @ -As above X-rays interpreted by me (1pt min.). @ -Chest x-ray shows no obvious acute cardiopulmonary process. CT interpreted by me (1pt min.). @ -None done U/S interpreted by me (1pt. min.). @ -None done What testing was considered but not performed or refused? (CT, X-rays, U/S, labs)? Why? @ -None What meds were considered but not given or refused? Why? @ -None Did you discuss the management of the patient with other professionals (professionals i.e. , PA, STIFF LEG OPERATOR, lab, RT, psych nurse, social studies teacher, auto parts salesperson, teacher, school services officer, case picker)? Give summary @ -No Was smoking cessation discussed for >3mins.? @ -No Was critical care preformed (if so, how long)? @ -No Were there social determinants of health that impacted care today? How? (Homelessness, low income, unemployed, alcoholism, drug addiction, transportation, low edu. Level, literacy, decrease access to med. care, long-term, rehab)? @ -No Was there de-escalation of care discussed even if they declined (Discuss DNR or withdrawal of care, Hospice)? DNR status @ -No What co-morbidities impacted this encounter? (DM, HTN, Smoking, COPD, CAD, Cancer, CVA, ARF, Chemo, Hep., AIDS, mental health diagnosis, sleep apnea, morbid obesity)? @ -None Was patient admitted / discharged? Hospital course, mention meds given and route, prescriptions, significant lab abnormalities, going to OR and other pertinent info. @ -Patient presents with what I suspect to be a panic attack and anxiety. This is how she clinically presents. We will empirically work her up for cardiac issues as well as thyroid function. She was in agreement this plan. She will be given additional 1 L fluid bolus that she received 1 L from EMS as well as a dose of oral Ativan. She was in agreement this plan. Vitals are remarkable for tachycardia. EKG shows sinus tachycardia with no significant acute ischemic changes.Chest x- ray shows no obvious acute cardiopulmonary process. Laboratory studies returned all within acceptable limits. Mild hypokalemia but I suspect this is secondary to hyperventilation from anxiety and will likely correct itself. Troponin undetectable. Thyroid function normal. She is not . Urinalysis unremarkable. UDS positive for marijuana only. On reevaluation, patient is resting comfortably. No acute complaints. I discussed that I believe she likely had anxiety and panic attack episode at home causing the near syncope. She expressed understanding. I recommended she follow-up with PCP and [facility] and she will be given contact info for both. I will provide her with doses of Ativan for home, 3 tablets total. She was in agreement this plan. Strict return precautions discussed. I will provide the patient with a prescription for Ativan. I instructed the patient to follow up with their PCP in the next 1-3 days. I explained that the patient should return to the emergency department if they experience any worsening symptoms. Strict return precautions were discussed with the patient. The patient expressed understanding of these instructions. I answered all questions that the patient had. The patient was discharged home in good condition with their prescriptions and follow up information. Undiagnosed new problem with uncertain prognosis? @ -No Drug Therapy requiring intensive monitoring for toxicity (Heparin, Nitro, Insulin, Cardizem)? @ -No Were any procedures done? @ -No Diagnosis/symptom? @ -Near syncope, panic attack/anxiety Acute, or Chronic, or Acute on Chronic? @ -Acute Uncomplicated (without systemic symptoms) or Complicated (systemic symptoms)? @ -Complicated Side effects of treatment? @ -None Exacerbation, Progression, or Severe Exacerbation] @ -No Poses a threat to life or bodily function? @ -Unlikely at this time - Lab Data Result diagrams: 12/20/24 23:04 12/20/24 23:04 Lab Results 12/20/24 12/20/24 12/20/24 Range/Units 22:51 23:04 23:04 WBC 7.93 (4.50-10.00) 10*3/uL RBC 3.87 L (4.10-5.20) 10*6/uL Hgb 11.4 L (12.0-15.0) g/dL Hct 32.1 L (37.2-46.3) % MCV 82.9 (80.0-97.0) fL MCH 29.5 (27.0-32.0) pg MCHC 35.5 (32.0-37.0) g/dL Plt Count 244 (140-440) 10*3/uL MPV 11.3 (9.5-12.2) fL Immature Gran % (Auto) 0.1 % Neutrophils % 47.2 % Lymphocytes % 42.2 % Monocytes % 8.2 % Eosinophils % 1.5 % Basophils % 0.8 % Immature Gran # 0.01 (0.00-0.04) 10*3/uL Neutrophils # 3.74 (1.80-7.70) 10*3/uL Lymphocytes # 3.35 (0.90-5.00) 10*3/uL Monocytes # 0.65 (0.20-1.00) 10*3/uL Eosinophils # 0.12 (0.04-0.35) 10*3/uL Basophils # 0.06 (0.00-0.10) 10*3/uL Sodium 135 L (137-145) mmol/L Potassium 3.2 L (3.5-5.1) mmol/L Chloride 106 (98-107) mmol/L Carbon Dioxide 18 L (22-30) mmol/L Anion Gap 11 mmol/L BUN 14 (7-17) mg/dL Creatinine 0.87 (0.52-1.04) mg/dL Est GFR (CKD-EPI)AfAm >90 (>60 ml/min/1.73 sqM) Est GFR (CKD-EPI)NonAf >90 (>60 ml/min/1.73 sqM) Glucose 120 H (74-99) mg/dL POC Glucose (mg/dL) 138 H (70-110) mg/dL POC Glu [employer] Sales Representative ID HELEN SCIANDRA Calcium 8.7 (8.4-10.2) mg/dL Magnesium 1.7 (1.6-2.3) mg/dL Total Bilirubin 0.7 (0.2-1.3) mg/dL AST 20 (14-36) U/L ALT 11 (4-34) U/L Alkaline Phosphatase 68 (38-126) U/L Troponin I (0.000-0.034) ng/mL Total Protein 6.0 L (6.3-8.2) g/dL Albumin 3.8 (3.5-5.0) g/dL TSH 1.370 (0.465-4.680) mIU/L HCG, Qual Not Detected Urine Color Urine Appearance (Clear) Urine pH (5.0-8.0) Ur Specific [place] (1.001-1.035) Urine Protein (Negative) Urine Glucose (UA) (Negative) Urine Ketones (Negative) Urine Blood (Negative) Urine Nitrite (Negative) Urine Bilirubin (Negative) Urine Urobilinogen (<2.0) mg/dL Ur Leukocyte Esterase (Negative) Urine Opiates Screen (NotDetected) Ur Oxycodone Screen (NotDetected) Urine Methadone Screen (NotDetected) Ur Barbiturates Screen (NotDetected) U Tricyclic Antidepress (NotDetected) Ur Phencyclidine Scrn (NotDetected) Ur Amphetamines Screen (NotDetected) U Methamphetamines Scrn (NotDetected) U Benzodiazepines Scrn (NotDetected) Urine Cocaine Screen (NotDetected) U Marijuana (THC) Screen (NotDetected) Serum Alcohol <10 mg/dL 12/20/24 12/20/24 12/20/24 Range/Units 23:04 23:16 23:16 WBC (4.50-10.00) 10*3/uL RBC (4.10-5.20) 10*6/uL Hgb (12.0-15.0) g/dL Hct (37.2-46.3) % MCV (80.0-97.0) fL MCH (27.0-32.0) pg MCHC (32.0-37.0) g/dL Plt Count (140-440) 10*3/uL MPV (9.5-12.2) fL Immature Gran % (Auto) % Neutrophils % % Lymphocytes % % Monocytes % % Eosinophils % % Basophils % % Immature Gran # (0.00-0.04) 10*3/uL Neutrophils # (1.80-7.70) 10*3/uL Lymphocytes # (0.90-5.00) 10*3/uL Monocytes # (0.20-1.00) 10*3/uL Eosinophils # (0.04-0.35) 10*3/uL Basophils # (0.00-0.10) 10*3/uL Sodium (137-145) mmol/L Potassium (3.5-5.1) mmol/L Chloride (98-107) mmol/L Carbon Dioxide (22-30) mmol/L Anion Gap mmol/L BUN (7-17) mg/dL Creatinine (0.52-1.04) mg/dL Est GFR (CKD-EPI)AfAm (>60 ml/min/1.73 sqM) Est GFR (CKD-EPI)NonAf (>60 ml/min/1.73 sqM) Glucose (74-99) mg/dL POC Glucose (mg/dL) (70-110) mg/dL POC Glu [employer] Sales Representative ID Calcium (8.4-10.2) mg/dL Magnesium (1.6-2.3) mg/dL Total Bilirubin (0.2-1.3) mg/dL AST (14-36) U/L ALT (4-34) U/L Alkaline Phosphatase (38-126) U/L Troponin I <0.012 (0.000-0.034) ng/mL Total Protein (6.3-8.2) g/dL Albumin (3.5-5.0) g/dL TSH (0.465-4.680) mIU/L HCG, Qual Urine Color Light Yellow Urine Appearance Clear (Clear) Urine pH 7.0 (5.0-8.0) Ur Specific [place] 1.020 (1.001-1.035) Urine Protein Negative (Negative) Urine Glucose (UA) Negative (Negative) Urine Ketones Negative (Negative) Urine Blood Negative (Negative) Urine Nitrite Negative (Negative) Urine Bilirubin Negative (Negative) Urine Urobilinogen 4.0 (<2.0) mg/dL Ur Leukocyte Esterase Negative (Negative) Urine Opiates Screen Not Detected (NotDetected) Ur Oxycodone Screen Not Detected (NotDetected) Urine Methadone Screen Not Detected (NotDetected) Ur Barbiturates Screen Not Detected (NotDetected) U Tricyclic Antidepress Not Detected (NotDetected) Ur Phencyclidine Scrn Not Detected (NotDetected) Ur Amphetamines Screen Not Detected (NotDetected) U Methamphetamines Scrn Not Detected (NotDetected) U Benzodiazepines Scrn Not Detected (NotDetected) Urine Cocaine Screen Not Detected (NotDetected) U Marijuana (THC) Screen Detected H (NotDetected) Serum Alcohol mg/dL - EKG Data -: EKG Interpreted by Me EKG Comments: 12-lead Electrocardiogram Interpretation Note EKG was reviewed and interpreted by myself. 12-lead ECG performed at 2247 is interpreted by me as revealing sinus tachycardia at a rate of 126 beats per minute. [place] is normal. NC interval is 120 ms, QRS durations 85 ms, QTc is [address] segment changes present. Right bundle branch block morphology somewhat present as well.. There were no ST or T wave abnormalities to suggest myocardial ischemia or injury. R wave progression across the precordium was satisfactory. By my interpretation this EKG is non-diagnostic for acute ischemia. Disposition Clinical Impression: Near syncope, Panic attack, Anxiety Disposition: HOME SELF-CARE Condition: Good Instructions (If sedation given, give patient instructions): Anxiety (ED) Prescriptions: LORazepam [Ativan] 0.5 mg PO DAILY PRN 3 Days #3 tab PRN Reason: Anxiety Is patient prescribed a controlled substance at d/c from ED?: Yes When asked, does pt state using other controlled substances?: No If prescribed controlled substance>3 days was MAPS reviewed?: Prescribed <3 Days Referrals: None,Stated [Primary Care Provider] - 1-2 days [facility] [NON-STAFF] - 1-2 days Forms: [facility] PCPs Time of Disposition: 00:43
[2024-12-20 23:16] LABS: Basophils # (A) 0.06 10*3/uL (0.00-0.10); Basophils % (A) 0.8 %; Eosinophils # (A) 0.12 10*3/uL (0.04-0.35); Eosinophils % (A) 1.5 %; HCT 32.1 % (37.2-46.3); HGB 11.4 g/dL (12.0-15.0); Lymphocytes # (A) 3.35 10*3/uL (0.90-5.00); Lymphocytes % (A) 42.2 %; MCH 29.5 pg (27.0-32.0); MCHC 35.5 g/dL (32.0-37.0); MCV 82.9 fL (80.0-97.0); Mean Platelet Volume 11.3 fL (9.5-12.2); Monocytes # (A) 0.65 10*3/uL (0.20-1.00); Monocytes % (A) 8.2 %; Neutrophils # (A) 3.74 10*3/uL (1.80-7.70); Neutrophils % (A) 47.2 %; Platelet Count 244 10*3/uL (140-440); RBC 3.87 10*6/uL (4.10-5.20); RDW 11.9 % (11.5-14.5); WBC 7.93 10*3/uL (4.50-10.00)
[2024-12-20] MEDS: LORazepam 1 MG TAB PO STA (23:19)
[2024-12-20] MEDS: SODIUM CHLORIDE 0.9% 1,000 ML IV STA (23:19)
[2024-12-20 23:21] VITALS: RESP 16
[2024-12-20 23:31] LABS: HCG,Qualitative Serum Not Detected
[2024-12-20 23:32] LABS: ALT 11 U/L (4-34); AST 20 U/L (14-36); African American GFR (CKD) >90 (>60 ml/min/1.73 sqM); Albumin 3.8 g/dL (3.5-5.0); Alcohol <10 mg/dL; Alkaline Phosphatase 68 U/L (38-126); Anion Gap 11 mmol/L; Blood Urea Nitrogen 14 mg/dL (7-17); Calcium 8.7 mg/dL (8.4-10.2); Carbon Dioxide 18 mmol/L (22-30); Chloride 106 mmol/L (98-107); Glucose 120 mg/dL (74-99); Magnesium 1.7 mg/dL (1.6-2.3); Non-African American GFR(CKD) >90 (>60 ml/min/1.73 sqM); Potassium 3.2 mmol/L (3.5-5.1); Sodium 135 mmol/L (137-145); Total Bilirubin 0.7 mg/dL (0.2-1.3)
[2024-12-20 23:32] LABS: Appearance,Urine Clear (Clear); Bilirubin,Urine Negative (Negative); Blood,Urine Negative (Negative); Color,Urine Light Yellow; Glucose,Urine (UA) Negative (Negative); Ketones,Urine Negative (Negative); Leukocyte Esterase,Urine Negative (Negative); Nitrite,Urine Negative (Negative); Protein,Urine Negative (Negative)
[2024-12-20 23:49] LABS: Amphetamine Screen,Urine Not Detected (NotDetected); Barbiturate Screen,Urine Not Detected (NotDetected); Benzodiazepines Screen,Urine Not Detected (NotDetected); Cocaine Screen,Urine Not Detected (NotDetected); Methadone Screen, Urine Not Detected (NotDetected); Opiate Screen,Urine Not Detected (NotDetected); Oxycodone Screen, Urine Not Detected (NotDetected); Phencyclidine Screen,Urine Not Detected (NotDetected); Tricyclic Antidepressant,Urine Not Detected (NotDetected); Urn Cannabinoid Scrn Detected (NotDetected)
[2024-12-21] MEDS: LORazepam 0.5 MG TAB PO ONE (00:06)
[2024-12-21 00:46] VITALS: BP 110/60; PULSE 89; TEMP 98.3
--- NOTE | 2024-12-21 00:59 | XR ---
EXAM: XR Chest, 2 Views CLINICAL HISTORY: ITS.REASON XR Reason: Chest Pain TECHNIQUE: Frontal and lateral views of the chest. COMPARISON: No relevant prior studies available. FINDINGS: Lungs: Unremarkable. No consolidation. Pleural space: Unremarkable. No pneumothorax. Heart: Unremarkable. No cardiomegaly. Mediastinum: Unremarkable. Bones/joints: Unremarkable. IMPRESSION: No consolidation.
== END 2024-12-21 00:52 | disposition home or self-care (01) ==
LOC: EC 22:41
DX: R55 Syncope and collapse (principal); F41.0 Panic disorder [episodic paroxysmal anxiety]; F41.9 Anxiety disorder, unspecified
CPT/HCPCS: 36415; 71046; 80053; 80306; 80320; 81003; 83735; 84443; 84484; 84703; 85025; 93005; 96360; 99284

== ENCOUNTER → 2025-01-24 | Outpatient (CLI) | payer BC, OTHER | END | disposition home or self-care (01) | LOC: LABWHC1 10:05 | PROVIDERS: ATTEND Obstetrics & Gynecology Obstetrics | DX: O20.0 Threatened abortion (principal); Z3A.00 Weeks of gestation of pregnancy not specified | CPT/HCPCS: 36415; 84144; 84702 ==